=== PATIENT | male | born 1980 | race Caucasian/White ===

== ENCOUNTER 2017-03-04 16:22 | Emergency (ER) | payer OTHER ==
[~2017-03-04] VITALS: Ht 188 cm; Wt 125.4 kg
[2017-03-04 17:27] LABS: microscopic required? NO
[2017-03-04 17:30] LABS: BASOPHIL % 0.4 % (0-2); PLATELET COUNT 227 x10^3mcL (130-400); RED CELL DISTRIBUTION WIDTH 13.1 % (11.5-14.5)
[2017-03-04 17:43] LABS: CALCIUM 8.9 mg/dL (8.5-10.1); CHLORIDE SERUM 104 mmol/L (98-107); CREATININE SERUM 1.2 mg/dL (0.7-1.3); GFR1 > 60 mL/min; GLUCOSE SERUM 104 mg/dL (74-106); POTASSIUM SERUM 4.1 mmol/L (3.5-5.1); SODIUM SERUM 142 mmol/L (136-145)
[2017-03-04 17:48] LABS: ALBUMIN 4.2 g/dL (3.4-5.0); ALKALINE PHOSPHATASE 77 U/L (46-116); ALT/SGPT 129 U/L (16-63); TOTAL PROTEIN, SERUM 7.7 g/dL (6.4-8.2)
[2017-03-04 17:49] LABS: UA SPECIFIC GRAVITY 1.025 (1.005-1.035); urine erythrocyte NEGATIVE (NEGATIVE)
[2017-03-04 17:49] LABS: CHOLESTEROL 235 mg/dL (<200)
[2017-03-04 18:04] LABS: AMPHETAMINE QUAL UR NONE DETECTED (NEG <=1000)
[2017-03-04 18:19] VITALS: BP 153/93
[2017-03-04 18:44] LABS: AST/SGOT 91 U/L (15-37)
== END 2017-03-04 18:49 | disposition home or self-care (01) ==
LOC: ED 16:22
PROVIDERS: Specialist
DX: R00.2 Palpitations (principal); R20.9 Unspecified disturbances of skin sensation
CPT/HCPCS: 83880; G0480; J3490; J7030; Q0092

== ENCOUNTER 2020-04-09 18:02 | Emergency (ER) | payer OTHER ==
[~2020-04-09] VITALS: Ht 185.4 cm; Wt 126.1 kg
[2020-04-09 18:07] VITALS: BP 157/116; Ht 185.4 cm; Wt 126.1 kg
== END 2020-04-09 19:28 | disposition home or self-care (01) ==
LOC: ED 18:02
DX: S62.634A Displaced fracture of distal phalanx of right ring finger, initial encounter for closed fracture (principal); W22.8XXA Striking against or struck by other objects, initial encounter; Y93.89 Activity, other specified; Y92.89 Other specified places as the place of occurrence of the external cause; Y99.8 Other external cause status

== ENCOUNTER 2020-08-16 15:29 | Inpatient (IN) | payer OTHER ==
[~2020-08-16] VITALS: Ht 188 cm; Wt 127.0 kg
[2020-08-16 15:38] VITALS: Ht 188 cm; Wt 127.0 kg
[2020-08-16 16:19] LABS: BASOPHIL % 0.8 % (0.2-1.5); PLATELET COUNT 185 x10^3mcL (152-348)
[2020-08-16 16:57] LABS: CALCIUM 9.6 mg/dL (8.5-10.1); CARBON DIOXIDE 28.8 mmol/L (21-32); CREATININE SERUM 2.2 mg/dL (0.7-1.3); POTASSIUM SERUM 4.2 mmol/L (3.5-5.1)
[2020-08-16 17:02] LABS: ALBUMIN 4.1 g/dL (3.4-5.0); BILIRUBIN TOTAL 0.9 mg/dL (0.20-1.00); TOTAL PROTEIN, SERUM 7.6 g/dL (6.4-8.2)
[2020-08-16 22:19] VITALS: BP 160/91
[2020-08-17 05:22] VITALS: BP 163/99
[2020-08-17 05:58] LABS: CALCIUM 8.9 mg/dL (8.5-10.1); CARBON DIOXIDE 30.1 mmol/L (21-32); POTASSIUM SERUM 4.3 mmol/L (3.5-5.1)
[2020-08-17 06:19] LABS: BASOPHIL % 0.3 % (0.2-1.5); PLATELET COUNT 172 x10^3mcL (152-348); RED CELL DISTRIBUTION WIDTH 13.1 % (12.1-16.2)
[2020-08-17 08:22] VITALS: BP 133/81
[2020-08-17] MEDS ORDERED: TAMSULOSIN HCL0.4 MG PO (08:47)
[2020-08-17] MEDS ORDERED: POTASSIUM CITR15 MEQ PO (08:48)
== END 2020-08-17 09:59 | disposition left against medical advice (07) | DRG 465 ==
LOC: ED 15:29 → MU 17:48
PROVIDERS: Emergency Medicine; ADMIT Internal Medicine; ATTEND Internal Medicine
DX: N20.1 Calculus of ureter (principal); N17.9 Acute kidney failure, unspecified; I10 Essential (primary) hypertension; M10.9 Gout, unspecified; N13.30 Unspecified hydronephrosis; Z20.822 Contact with and (suspected) exposure to COVID-19; Z53.29 Procedure and treatment not carried out because of patient's decision for other reasons
CPT/HCPCS: G0378; J0696; J1885; J2543; J7030; U0003